=== PATIENT | female | born 2000 | race Two or more races ===

== ENCOUNTER 2024-05-16 12:49 | Emergency (ER) | payer MEDICAID ==
[~2024-05-16] VITALS: Ht 157.5 cm; Wt 52.0 kg
[2024-05-16 12:56] VITALS: O2SAT 100
[2024-05-16 13:56] LABS: BASOPHILS % 0.7 % (0.0-2.0); EOSINOPHILS % 0.2 % (0.0-5.0); HEMATOCRIT. 39.7 % (36.0-48.0); HEMOGLOBIN. 13.3 g/dL (12.0-16.0); LYMPHOCYTES % 14.3 % (20.0-50.0); MEAN CORPUSCULAR HEMOGLOBIN 27.8 pg (28.0-32.0); MEAN CORPUSCULAR HGB CONC 33.5 g/dL (31.0-37.0); MEAN PLATELET VOLUME 9.2 fl (7.4-10.4); MONOCYTES % 4.6 % (2.0-8.0); NEUTROPHILS % 80.2 % (40.0-76.0); PLATELET 270 x1000/uL (130-400); RED BLOOD CELL COUNT 4.78 mill/uL (4.2-5.4); RED CELL DISTRIBUTION WIDTH 14.4 % (11.6-14.6); WHITE BLOOD COUNT 9.2 x1000/uL (4.5-11.0)
[2024-05-16 14:03] LABS: CHLORIDE 104 mEq/L (98-107); POTASSIUM 3.9 mEq/L (3.5-5.1); SODIUM 134 mEq/L (136-145)
[2024-05-16 14:04] LABS: CARBON DIOXIDE 25 mEq/L (21-32); HCG SCREEN NEGATIVE
[2024-05-16 14:09] LABS: CREATININE 0.7 mg/dL (0.6-1.0); GLUCOSE 126 mg/dL (70-105)
[2024-05-16 14:11] LABS: ACETAMINOPHEN < 2 ug/mL (10-30)
[2024-05-16 14:15] LABS: CLARITY URINE CLOUDY (CLEAR); COLOR URINE YELLOW (YELLOW); GLUCOSE URINE NEGATIVE (NEGATIVE); KETONES URINE NEGATIVE (NEGATIVE); LEUKOCYTE ESTERASE URINE TRACE (NEGATIVE); NITRITE URINE NEGATIVE (NEGATIVE); OCCULT BLOOD URINE NEGATIVE (NEGATIVE); PROTEIN URINE NEGATIVE (NEGATIVE); SPECIFIC GRAVITY URINE 1.009 (1.005-1.030); UROBILINOGEN URINE 0.2 E.U./dL (0.2-1.0)
[2024-05-16 14:15] LABS: ETHANOL BLOOD < 10 mg/dL (<10); UREA NITROGEN BLOOD < 5 mg/dL (9-23)
[2024-05-16 14:53] LABS: *AMPHETAMINES SCREEN URINE NEGATIVE (NEGATIVE); *BARBITURATES SCREEN URINE NEGATIVE (NEGATIVE); *BENZODIAZEPINES SCREEN URINE NEGATIVE (NEGATIVE); *COCAINE SCREEN URINE NEGATIVE (NEGATIVE); METHADONE URINE SCREEN NEGATIVE (NEGATIVE); OPIATES URINE SCREEN NEGATIVE (NEGATIVE); PHENCYCLIDINE URINE SCREEN NEGATIVE (NEGATIVE)
[2024-05-16 14:54] LABS: BACTERIA URINE 1+; CANNABINOID URINE SCREEN PRESUMPTIVE POSITIVE (NEGATIVE); ECSTASY MDMA SCREEN URINE NEGATIVE (NEGATIVE); RBC URINE 0-2 /hpf (0-2); SQUAMOUS EPITHELIAL CELL URINE 2+ /lpf (RARE/1+); WBC URINE 0-2 /hpf (0-2); YEAST URINE NONE SEEN
[2024-05-16] MEDS: HALOPERIDOL LACTATE 5MG/ML VIAL IM ONE (16:00)
[2024-05-16] MEDS: MIDAZOLAM HCL 2 MG/2 ML VIAL IM ONE (16:00)
[2024-05-16] MEDS: MELATONIN 3MG TABLET PO SCH (21:16)
[2024-05-17] MEDS: LORAZEPAM 2MG/ML INJ IM ONE (08:01)
[2024-05-17] MEDS: OLANZAPINE 10 MG/VIAL IM ONE (08:01)
[2024-05-17 12:00] VITALS: BP 121/75; PULSE 86; RESP 17; TEMP 98.5
== END 2024-05-17 13:26 ==
LOC: ER 12:49
DX: R45.851 Suicidal ideations (principal); F32.A Depression, unspecified; Z20.822 Contact with and (suspected) exposure to COVID-19; Z98.890 Other specified postprocedural states
CPT/HCPCS: 80305; 80048; 81003; 80307; 80329; 80320; 84703; 85025; 36415; 96372 ×2; 99291; 87426; J1630; J2250; Z7610; J3490; J2060; G0480

== ENCOUNTER 2025-02-22 17:14 | Emergency (ER) | payer MEDICAID ==
[~2025-02-22] VITALS: Ht 165.1 cm; Wt 55.0 kg
[2025-02-22 17:15] VITALS: BP 102/58; PULSE 123; RESP 13; TEMP 36.8; O2SAT 97
[2025-02-22 17:30] VITALS: O2SAT 99
== END 2025-02-22 17:57 | disposition home or self-care (01) ==
LOC: ER 17:14
DX: R56.9 Unspecified convulsions (principal); F32.A Depression, unspecified; Z79.899 Other long term (current) drug therapy
CPT/HCPCS: 99283; Z7610; A4606